=== PATIENT | female | born 1980 | race Caucasian/White ===

== ENCOUNTER 2016-12-22 13:40 | Emergency (ER) | payer OTHER ==
[2016-12-22] MEDS ORDERED: KETOROLAC 60 MG/2 ML VIAL IM ONE (15:11)
[2016-12-22] MEDS ORDERED: CYCLOBENZAPRINE 10 MG TAB ONE (15:12)
== END 2016-12-22 16:41 | disposition home or self-care (01) ==
LOC: ER 13:40
DX: S16.1XXA Strain of muscle, fascia and tendon at neck level, initial encounter (principal); M47.9 Spondylosis, unspecified; M54.12 Radiculopathy, cervical region; J09.X2 Influenza due to identified novel influenza A virus with other respiratory manifestations
CPT/HCPCS: 36415; 70450; 72125; 80053; 85025; 87804; 96372